=== PATIENT | male | born 1985 | race Caucasian/White ===

== ENCOUNTER 2017-02-13 15:02 | Emergency (ER) | payer SELFPAY ==
[2017-02-13] MEDS ORDERED: Adacel Vial IM ONE ×2 (15:06→15:23)
[2017-02-13] MEDS ORDERED: Hydromorphone 1 mg/ml Ampule IV ONE (15:06)
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
[2017-02-13] MEDS ORDERED: Hydromorphone 1 mg/ml Ampule ONE (15:23)
[2017-02-13] MEDS ORDERED: Lactated Ringers 1,000 ML IV ONE (15:23)
[2017-02-13 15:30] LABS: Mean Cell Volume 84.1 fl (78-100); Mean Platelet Volume 9.1 fl (6-9.5); Platelet Count 270 K/mm3 (150-450); Red Blood Count 5.74 M/mm3 (4.1-5.6); White Blood Count 15.1 K/mm3 (4.0-10.5)
[2017-02-13] MEDS ORDERED: Lactated Ringers 1,000 ML IV SCH (15:30)
[2017-02-13 15:31] LABS: Mean Corpuscular Hemoglobin 29.9 pg (26-32)
[2017-02-13 15:42] LABS: BAND 2 % (0.0-2.0); Eosinophil 1 % (0.00-3.0); Platelet Estimate NORMAL (NORMAL); Total Cells Counted 100
[2017-02-13 15:51] LABS: INR 1.11 (0.8-3.0); PROTIME 12.5 SECONDS (8.83-12.87)
[2017-02-13 15:54] LABS: PTT 28.9 SECONDS (24.1-36.1)
[2017-02-13 16:00] LABS: ALBUMIN 4.3 g/dL (3.4-5.0); ALKALINE PHOSPHATASE 105 U/L (46-116); ANION GAP 19.5 MEQ/L (5-15); BLOOD UREA NITROGEN 8 mg/dL (9-20); CHLORIDE 103 mEq/L (98-107); Carbon Dioxide 20.8 mEq/L (21-32); ETHYL ALCOHOL 0.141 % (0.00-0.01); Glucose 116 MG/DL (70-110); Potassium 3.6 mEq/L (3.5-5.1); SGOT/AST 38 U/L (15-37); SGPT/ALT 31 U/L (12-78); SODIUM 140 mEq/L (136-145); Total Protein 8.1 gm/dL (6.4-8.2)
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
[2017-02-13 16:59] VITALS: O2SAT 95
[2017-02-13 17:53] VITALS: BP 127/89; PULSE 78
[2017-02-13] MEDS ORDERED: BACIGUENT PACKET ONE (18:25)
[2017-02-13 18:28] LABS: Bilirubin NEGATIVE (NEGATIVE); Blood 50 Ery/ul (0-5); COMPLETE URINE MICROSCOPIC? YES; Collection Type CCMS; Glucose NEGATIVE (NEGATIVE); Leukocyte Esterase NEGATIVE (NEGATIVE)
[2017-02-13 18:29] LABS: ADD URINE CULTURE? NO (NO)
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
== END 2017-02-13 18:42 | disposition left against medical advice (07) ==
LOC: ED 15:02
DX: S82.301A Unspecified fracture of lower end of right tibia, initial encounter for closed fracture (principal); S33.5XXA Sprain of ligaments of lumbar spine, initial encounter; F10.129 Alcohol abuse with intoxication, unspecified; V86.59XA Driver of other special all-terrain or other off-road motor vehicle injured in nontraffic accident, initial encounter; M54.5 Low back pain; R07.89 Other chest pain; R10.31 Right lower quadrant pain
CPT/HCPCS: 36000; 36415; 70450; 71260; 72125; 73060; 73090; 73130; 73552; 73590; 73630; 74177; 80053; 80307; 81000; 85025; 85610; 85730; 90471; 90715; 93041; 96360; 96372; 96374; 96375; 99284; G0481; J1170; L4386; A9270-GY